=== PATIENT | male | born 1960 | race Caucasian/White ===

== ENCOUNTER 2020-11-22 10:30 | Emergency (ER) | payer SELFPAY ==
[2020-11-22 10:51] VITALS: BP 160/123; PULSE 105
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
[2020-11-22] MEDS ORDERED: Diphtheria,Pertussis(Acell),Tetanus Vaccine 0.5 ML SDV IM ONE (11:00)
--- NOTE | 2020-11-22 11:23 | CT ---
INDICATION: Trauma COMPARISON: None TECHNIQUE: CT examination of the head was performed as axial sections without intravenous contrast. Images were obtained from the vertex of the skull through the skull base. Please note that all CT scans at this facility use dose modulation, iterative reconstruction, and/or weight-based dosing when appropriate to reduce radiation dose to as low as reasonably achievable. FINDINGS: The brain shows no sign of mass lesion, mass effect, hemorrhage, or edema. There are involutional changes. There is mild cortical atrophy and there is mild white matter disease. There is no hydrocephalus. The visualized portions of the orbits are normal in appearance. The osseous structures are normal in appearance with no sign of abnormality in the skull base or calvarium. IMPRESSION: Involutional changes. No acute-appearing findings. Please note that all CT scans at this facility use dose modulation, iterative reconstruction, and/or weight-based dosing when appropriate to reduce radiation dose to as low as reasonably achievable. Dictated by Zeus Bryan MD @ Nov 22 2020 11:18AM Signed by Dr. Zeus Bryan @ Nov 22 2020 11:22AM
--- NOTE | 2020-11-22 11:30 | CT ---
INDICATION: Trauma COMPARISON: None TECHNIQUE: CT examination of the cervical spine is performed without contrast using spiral technique. Thin axial, sagittal and coronal reconstructions were made. Please note that all CT scans at this facility use dose modulation, iterative reconstruction, and/or weight-based dosing when appropriate to reduce radiation dose to as low as reasonably achievable. FINDINGS: : The study is somewhat limited by soft tissue attenuation factors and motion. Bone mineral density is decreased. There is no visible lytic or blastic lesion, fracture or dislocation. There are moderate degenerative changes primarily the mid and lower cervical spine. There is straightening. IMPRESSION: Demineralization and degenerative change without fracture or destructive process. Straightening which is usually due to muscle spasm or positioning. Somewhat limited due to soft tissue attenuation factors and motion. Please note that all CT scans at this facility use dose modulation, iterative reconstruction, and/or weight-based dosing when appropriate to reduce radiation dose to as low as reasonably achievable. Dictated by Zeus Bryan MD @ Nov 22 2020 11:23AM Signed by Dr. Zeus Bryan @ Nov 22 2020 11:28AM
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
== END 2020-11-22 11:19 | disposition left against medical advice (07) ==
LOC: MW.ED 10:30
DX: S00.11XA Contusion of right eyelid and periocular area, initial encounter (principal); Y04.2XXA Assault by strike against or bumped into by another person, initial encounter
CPT/HCPCS: 70450; 70450-26; 70486; 70486-26; 72125; 72125-26; 99283; 99284-25

== ENCOUNTER 2021-03-30 08:50 | Emergency (ER) | payer SELFPAY ==
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
[2021-03-30 09:17] VITALS: BP 169/135; PULSE 111
== END 2021-03-30 09:17 ==
LOC: MW.ED 08:50
DX: S50.312A Abrasion of left elbow, initial encounter (principal); W22.8XXA Striking against or struck by other objects, initial encounter
CPT/HCPCS: 99282; 99283

== ENCOUNTER 2021-04-06 06:34 | Emergency (ER) | payer MEDICAID ==
[2021-04-06] MEDS ORDERED: Ibuprofen 600 MG Tab PO ONE (06:51)
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
--- NOTE | 2021-04-06 07:10 | CR ---
Indication: Injury and pain Technique: Right knee 3 views Comparison: None Findings: Bones: Alignment is normal. No fractures or bone lesions. Joint spaces: Moderate to advanced knee joint arthritis with joint space narrowing and periarticular osteophytes. Mild osteoarthritis in the patellofemoral joint. No significant joint effusion. Soft tissues: Unremarkable. Impression: No sign of acute injury. Dictated by Brad Rico MD @ 04/06/2021 7:09:[address] Brad Rico @ Apr 06 2021 7:09AM
[2021-04-06 07:32] VITALS: BP 137/78; PULSE 70
--- NOTE | 2021-04-06 08:44 | CT ---
Indication: Recent injury with pain. Difficulty ambulating. Technique: CT right knee without contrast. Comparison: None. Findings: Bone alignment is normal. No sign of acute fracture or suspicious bone lesion. Moderate knee joint arthritis with narrowing of the medial compartment and periarticular osteophytes. Mild patellofemoral joint arthritis. Small joint effusion present. Soft tissues unremarkable. Impression: No sign of fracture. There is arthritis and a small joint effusion. Please note that all CT scans at this facility use dose modulation, iterative reconstruction, and/or weight-based dosing when appropriate to reduce radiation dose to as low as reasonably achievable. Dictated by Brad Rico MD @ 04/06/2021 8:43:[address] Brad Rico @ Apr 06 2021 8:43AM
== END 2021-04-06 09:11 | disposition home or self-care (01) ==
LOC: MW.ED 06:34
DX: S80.01XA Contusion of right knee, initial encounter (principal); Y04.0XXA Assault by unarmed brawl or fight, initial encounter
CPT/HCPCS: 73562-26-RT; 73562-RT; 73700-26-RT; 73700-RT; 99283; 99284